=== PATIENT | female | born 1995 | race Caucasian/White ===

== ENCOUNTER 2022-06-01 09:54 | Day surgery (SDC) | payer OTHER ==
[~2022-06-01] VITALS: Ht 160 cm; Wt 130.5 kg
[2022-06-01] MEDS ORDERED: ESCI5 (11:24)
[2022-06-01] MEDS ORDERED: Famotidine10 MG/1 ML (11:25)
[2022-06-01] MEDS ORDERED: OMEP20ER (11:25)
[2022-06-01] MEDS ORDERED: METF500 (11:26)
--- NOTE | 2022-06-01 11:38 | NUR ---
06/01/22 [employer] CHARTING INFORMATION WAS DONE BY [facility]. OBSERVED THAT [email or web address] WAS SIGNED INTO COMPUTER AFTER CHARTING WAS DONE.
[2022-06-01] MEDS ORDERED: ESCI20 PO (12:18)
[2022-06-01] MEDS ORDERED: ZEGERID 40 MG1 EAC1 (12:21)
[2022-06-01] MEDS ORDERED: FAMO20 PO (12:23)
[2022-06-01] MEDS ORDERED: METF500 PO (12:27)
== END 2022-06-01 13:55 | disposition home or self-care (01) ==
LOC: ORSCSDS 09:54
PROVIDERS: Obstetrics & Gynecology
PROC: 0UPD8HZ Removal of Contraceptive Device from Uterus and Cervix, Via Natural or Artificial Opening Endoscopic (ICD-10-PCS; principal; 2022-06-01 12:00)
DX: T83.32XA Displacement of intrauterine contraceptive device, initial encounter (principal); E11.9 Type 2 diabetes mellitus without complications; F32.A Depression, unspecified; E66.01 Morbid (severe) obesity due to excess calories; Z68.43 Body mass index [BMI] 50.0-59.9, adult; K21.9 Gastro-esophageal reflux disease without esophagitis; Z79.899 Other long term (current) drug therapy; Z79.84 Long term (current) use of oral hypoglycemic drugs
CPT/HCPCS: 82947; J1100; J1885; J2250; J2405; J2704; J3010; J7120

== ENCOUNTER 2023-05-23 13:02 | Emergency (ER) | payer OTHER ==
[~2023-05-23] VITALS: Ht 162.6 cm; Wt 111.1 kg
[~2023-05-23 13:02] MED LIST: ESCI20 PO; ESCI5; FAMO20 PO; Famotidine10 MG/1 ML; METF500; METF500 PO; OMEP20ER; ZEGERID 40 MG1 EAC1
[2023-05-23 13:28] LABS: BASOPHILS ABSOLUTE AUTO 0.06 K/mm3 (0.00-0.23); BASOPHILS PERCENT AUTO 1 % (0-2); EOSINOPHILS ABSOLUTE AUTO 0.23 K/mm3 (0.00-0.68); EOSINOPHILS PERCENT AUTO 3 % (0-6); Hematocrit 39.7 % (33.0-51.0); Hemoglobin 13.5 g/dL (11.5-16.0); IMMATURE GRAN ABSOLUTE AUTO 0.05 K/mm3 (0.00-0.10); IMMATURE GRAN PERCENT AUTO 1 % (0-1); LYMPHOCYTES PERCENT AUTO 24 % (21-46); MONOCYTES ABSOLUTE AUTO 1.01 K/mm3 (0.16-1.47); MONOCYTES PERCENT AUTO 13 % (4-13); Mean Corpuscular HGB 27.5 pg (26.0-34.0); Mean Corpuscular Volume 81 fL (80-100); Mean Platelet Volume 10.7 fL (9.1-12.4); NEUTROPHILS ABSOLUTE AUTO 4.76 K/mm3 (1.96-9.15); NEUTROPHILS PERCENT AUTO 60 % (41-73); Platelet Count 364 K/mm3 (150-400); RDW Coefficient Variation 12.8 % (11.7-14.2); RDW Standard Deviation 37.2 fL (35.1-46.3); Red Blood Cell Count 4.91 M/mm3 (3.80-5.20); White Blood Cell Count 8.01 K/mm3 (4.00-11.30)
[2023-05-23 13:56] LABS: Source, Urine Clean Catch
[2023-05-23 14:01] LABS: Albumin, Blood 3.9 g/dL (3.4-5.0); Bilirubin, Total 0.5 mg/dL (0.1-1.0); Bun/Creatinine Ratio 5.4 (12.0-20.0); Calcium, Blood 9.3 mg/dL (8.5-10.1); Creatinine, Blood 0.74 mg/dL (0.40-1.00); Globulin, Blood 3.8 g/dL (2.2-4.0); Potassium, Blood 3.4 mmol/L (3.5-5.5); Total Protein, Blood 7.7 g/dL (6.4-8.2)
[2023-05-23 14:02] LABS: Appearance, Urine Hazy (Clear); Blood, Urine 1+ (Neg); Color, Urine Yellow (P-Yellow); Glucose Qualitative, Urine Neg (Neg); Ketones, Urine 4+ (Neg); Leukocyte Esterase, Urine 1+ (Neg); Nitrite, Urine Neg (Neg); Protein, Urine 4+ (Neg); Specific Gravity, Urine 1.025 (1.003-1.022); Urobilinogen, Urine 2+ (Normal)
[2023-05-23 14:08] LABS: Bilirubin, Urine 2+ (Neg)
[2023-05-23 14:10] LABS: Mucus Heavy (0-Heavy)
[2023-05-23 14:11] LABS: Bacteria Mod /hpf; Squamous Epithelial Cells Few /hpf (Few); Transitional Epithelial Cells Few /hpf (0-Rare)
[2023-05-23 16:45] VITALS: BP 132/89
[2023-05-23] MEDS ORDERED: Zofran4 MG PO (16:49)
== END 2023-05-23 16:54 | disposition home or self-care (01) ==
LOC: ER 13:02
PROVIDERS: Student in an Organized Health Care Education/Training Program
DX: G89.18 Other acute postprocedural pain (principal); R10.9 Unspecified abdominal pain; Z98.84 Bariatric surgery status; Z79.899 Other long term (current) drug therapy; Z79.84 Long term (current) use of oral hypoglycemic drugs
CPT/HCPCS: 74177; 80053; 81001; 81025; 83690; 84703; 85025; 87086; 96360-59; 99284-25; J7030; Q9967

== ENCOUNTER → 2024-08-22 | Outpatient (CLI) | payer OTHER ==
[~2024-08-22] MED LIST changes: +Zofran4 MG PO
== END | disposition home or self-care (01) ==
LOC: LAB 15:45 → LAB SHORT 15:45
DX: N39.0 Urinary tract infection, site not specified (principal)
CPT/HCPCS: 87077; 87086; 87186